=== PATIENT | male | born 1970 | race Two or more races ===

== ENCOUNTER 2018-08-28 03:10 | Inpatient (IN) | payer OTHER ==
[~2018-08-28] VITALS: Ht 165.1 cm; Wt 71.7 kg
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
--- NOTE | 2018-08-28 03:20 | NUR ---
[employer] AT BEDSIDE TALKING TO PT.
[2018-08-28] MEDS ORDERED: ONDANSETRON HCL/PF 4 MG/2 ML VIAL ONE (03:27)
[2018-08-28] MEDS ORDERED: ONDANSETRON HCL/PF 4 MG/2 ML VIAL IVP ONE (03:30)
[2018-08-28] MEDS ORDERED: IV NS 0.9% 1,000 ML BAG IV ONE ×2 (03:30→14:30)
--- NOTE | 2018-08-28 03:45 | NUR ---
IV LINE OBTAINED ON L HAND 20G. MEDICAL TECHNOLOGIST BLOOD BANK AT BEDSIDE FOR BLOOD DRAW
--- NOTE | 2018-08-28 03:48 | NUR ---
AT BEDSIDE FOR EVAL
[2018-08-28 03:53] LABS: BASOPHILS # (AUTO) 0.1 /CMM (0.0-0.2); BASOPHILS % (AUTO) 0.3 % (0.0-2.0); EOSINOPHILS % (AUTO) 0.8 % (0.0-6.0); HEMATOCRIT 35 % (39-51); HEMOGLOBIN 11.6 g/dL (13.5-17.5); LYMPHOCYTES # (AUTO) 2.4 /CMM (0.8-4.8); LYMPHOCYTES % (AUTO) 11.1 % (20.0-44.0); MEAN CORPUSCULAR HGB CONC 34 g/dl (31.0-36.0); MEAN CORPUSCULAR VOLUME 85 fL (80-96); MONOCYTES # (AUTO) 1.3 /CMM (0.1-1.30); MONOCYTES % (AUTO) 5.9 % (2.0-12.0); NEUTROPHILS # (AUTO) 17.9 /CMM (1.8-8.9); NEUTROPHILS % (AUTO) 81.9 % (43.0-81.0); PLATELET COUNT (AUTO) 443 /CMM (150-450); RED BLOOD CELL COUNT(AUTO) 4.08 MIL/uL (4.5-6.0); WHITE BLOOD COUNT (AUTO) 21.9 K/uL (4.3-11.0)
--- NOTE | 2018-08-28 03:53 | NUR ---
XRAY AT BEDSIDE
[2018-08-28 04:00] LABS: ALCOHOL, BLOOD < 3 mg/dL (0-0); CALCIUM, SERUM 8.3 mg/dL (8.5-10.1); CARBON DIOXIDE 25 mmol/L (21-32); CHLORIDE 99 mmol/L (98-107); CREATININE 0.8 mg/dL (0.6-1.3); GLUCOSE 125 mg/dL (74-106); POTASSIUM 3.3 mmol/L (3.5-5.1); SODIUM SERUM 134 mmol/L (136-145); UREA NITROGEN, BLOOD 11 mg/dL (7-18)
--- NOTE | 2018-08-28 04:01 | NUR ---
PT NOTED SATTING AT 86% ON RA WHILE SLEEPING. PLACED ON 02 @ 2LPM VIA NV BUT PT KEEPS REMOVING AND REFUSED TO PUT IT ON. O2 SAT GOES UP TO 97 WHEN HE IS AWAKE. MADE AWARE.
--- NOTE | 2018-08-28 04:02 | NUR ---
RECEIVED ORDER FROM
[2018-08-28] MEDS ORDERED: NALOXONE PREFILLED SYRINGE 2 MG/2 ML SYRINGE ONE (04:04)
--- NOTE | 2018-08-28 04:21 | NUR ---
PT AMBULATED TO BATHROOM WITH ANY ASSITANCE.
[2018-08-28] MEDS ORDERED: NALOXONE HCL 0.4 MG/ML AMPUL IV ONE (04:30)
[2018-08-28 05:03] LABS: APPEARANCE,URINE CLEAR (CLEAR); BILIRUBIN,URINE NEGATIVE (NEGATIVE); BLOOD, URINE NEGATIVE Ery/uL (NEGATIVE); COLOR,URINE YELLOW (YELLOW); KETONES,URINE TRACE (NEGATIVE); LEUKOCYTE ESTERASE ,URINE NEGATIVE (NEGATIVE); NITRITE, URINE NEGATIVE (NEGATIVE); PROTEIN,URINE 1+ mg/dl (NEGATIVE); UGLUCOSE NEGATIVE (NEGATIVE); UROBILINOGEN,URINE 0.2 EU/dL (0.2)
[2018-08-28 05:10] LABS: BACTERIA,URINE Few /HPF (None Seen); MUCUS,URINE Few /LPF (None Seen); SQUAMOUS EPITHELIAL CELL,UR Rare /HPF (None Seen); WBC,URINE 0-2 /HPF (0-3)
--- NOTE | 2018-08-28 06:20 | NUR ---
PT IN BED SLEEPING. NAD, BREATHING EVEN AND UNLABORED.
--- NOTE | 2018-08-28 07:37 | NUR ---
REPORT GIVEN TO ESTEFANY WHITE FOR PAMELA
--- NOTE | 2018-08-28 07:38 | NUR ---
REPORT RECEIVED FROM TREVIN ALLISON FOR PAMELA
--- NOTE | 2018-08-28 09:07 | NUR ---
PT IN BED SLEEPING. NAD, BREATHING EVEN AND UNLABORED. HOOKED TO MONITOR, KEPT SAFE, WARM AND COMFORTABLE.
--- NOTE | 2018-08-28 10:38 | NUR ---
PT IN BED SLEEPING. HOOKED TO MONITOR, NAD, BREATHING EVEN AND UNLABORED. KEPT SAFE, WARM AND COMFORTABLE.
--- NOTE | 2018-08-28 13:23 | NUR ---
PT ASLEEP IN BED, EASILY AROUSED BY VOICE. HOOKED TO MONITOR. KEPT SAFE, WARM AND COMFORTABLE.
[2018-08-28] MEDS ORDERED: ONDANSETRON 4 MG TAB.RAPDIS ONE (13:28)
[2018-08-28] MEDS ORDERED: ONDANSETRON 4 MG TAB.RAPDIS SL ONE (13:30)
[2018-08-28] MEDS ORDERED: NAPR-1009 PO (14:05)
[2018-08-28] MEDS ORDERED: METH500T PO (14:05)
[2018-08-28] MEDS ORDERED: METH750T3 PO (14:06)
[2018-08-28] MEDS ORDERED: VANCOMYCIN 1 GM in IV D5W 250 ML IV ONE (14:30)
[2018-08-28] MEDS ORDERED: PIPERACILLIN /TAZOBACTAM 3.375 G in IV D5W 50 ML IV ONE (14:30)
--- NOTE | 2018-08-28 14:30 | NUR ---
LH PERIPHERAL IV LINE INFILTRATED, REMOVED IV. NO BLEEDING NOTED. STARTED NEW IVP AT RH 20G.
--- NOTE | 2018-08-28 14:45 | NUR ---
NÉ[employer] WAS CALLED. GLOBAL HUMAN RESOURCES DIRECTOR WAS PAGED.
--- NOTE | 2018-08-28 15:11 | NUR ---
[facility]ED [facility] FOR [facility] FOR RETAIL COVERAGE MERCHANDISER LEAD
--- NOTE | 2018-08-28 15:18 | NUR ---
CALLED [facility]SE [facility] FOR MS BED
[2018-08-28] MEDS ORDERED: IV NS 0.9% 1,000 ML IV PRN (15:28)
[2018-08-28] MEDS ORDERED: NAPROXEN 500 MG TABLET PO PRN (15:30)
[2018-08-28] MEDS ORDERED: ONDANSETRON HCL/PF 4 MG/2 ML VIAL IVP PRN (15:30)
[2018-08-28] MEDS ORDERED: LORAZEPAM INJ 2 MG/ML VIAL IV PRN (15:30)
[2018-08-28] MEDS ORDERED: MAG HYDROX/AL HYDROX/SIMETH 30 ML UDC PO PRN (15:30)
[2018-08-28] MEDS ORDERED: Z GUARD REMEDY 2 OZ OINT TP PRN (15:30)
[2018-08-28] MEDS ORDERED: MAGNESIUM HYDROXIDE 30 ML UDC PO PRN (15:30)
[2018-08-28] MEDS ORDERED: POTASSIUM CHLORIDE 20 MEQ TAB.PRT.SR PO ONE (15:30)
[2018-08-28] MEDS ORDERED: HYDROCODONE/APAP 10/325MG 1 EA TABLET PO PRN (15:30)
[2018-08-28] MEDS ORDERED: HYDROCODONE/APAP 5/325MG 1 EACH TABLET PO PRN (15:30)
[2018-08-28] MEDS ORDERED: ZOLPIDEM TARTRATE 5 MG TABLET PO PRN (15:30)
[2018-08-28] MEDS ORDERED: ACETAMINOPHEN 325 MG TABLET PO PRN (15:30)
[2018-08-28] MEDS ORDERED: HYDROMORPHONE INJ 2 MG/ML DISP.SYRIN IV PRN (15:30)
[2018-08-28] MEDS ORDERED: METHOCARBAMOL (750MG) 750 MG TABLET PO PRN (15:30)
[2018-08-28 15:37] VITALS: BP 104/70
--- NOTE | 2018-08-28 15:51 | NUR ---
207-2 MS BED GIVEN
--- NOTE | 2018-08-28 16:00 | NUR ---
REPORT GIVEN TO CHRISTOPHER ALLISON OF MED-S[facility] UNIT
[2018-08-28] MEDS ORDERED: FEE PK DOSING 1 MIN EA MC ONE (16:10)
--- NOTE | 2018-08-28 16:10 | NUR ---
MS RN NOTES PATIENT ARRIVED AT UNIT BY EL. PATIENT SLEEPING, EASILY AROUSABLE, ALERT AND ORIENTED X 4, VERBALLY RESPONSIVE AND RESPONDS TO VERBAL AND TACTILE STIMULI. NO ACUTE DISTRESS. DENIES ANY PAIN OR DISCOMFORT. PATIENT UNDER MEDICAL SUPERVISION OF DR. FULLER, MADE AWARE OF PATIENT ARRIVAL. PATIENT ORIENTED TO UNIT, STAFF, PLAN OF CARE AND VERBALIZED UNDERSTANDING. WILL CONTINUE TO MONITOR. BED LOCKED AND IN LOW POSITION. BILATERAL UPPER SIDE RAILS UP AND LOCKED. CALL LIGHT WITHIN EASY REACH
[2018-08-28] MEDS ORDERED: ENOXAPARIN SODIUM 40 MG/0.4 ML DISP.SYRIN SQ SCH (16:30)
--- NOTE | 2018-08-28 16:50 | NUR ---
MS RN NOTES DR. FULLER PRESENT AT UNIT. REQUESTING THAT PATIENT TO BE TRANSFERRED TO 3RD FLOOR FOR CLOSER SUPERVISION PATIENT HAS EPISODES OF VOMITING. NURSING INSPECTOR SOLDERING MADE AWARE AND GAVE OK. CHARGE NURSE AT [facility] MADE AWARE.
--- NOTE | 2018-08-28 17:10 | NUR ---
MS RN NOTES PATIENT TO TRANSFER TO [facility]
[2018-08-28] MEDS: ZOSYN IVPB 3.375 G in IV D5W 50ml IV SCH ×2 (17:21→23:24)
--- NOTE | 2018-08-28 17:30 | NUR ---
MS RN NOTES REPORT GIVEN TO DEVANTE RN FOR PAMELA
[2018-08-28] MEDS ORDERED: PIPERACILLIN /TAZOBACTAM 4.5 G in IV D5W 50 ML IV SCH (18:00)
--- NOTE | 2018-08-28 18:17 | NUR ---
MS RN NOTES TRANSFERRED TO [facility] BY HOSPITAL BED. NO ACUTE DISTRESS. PATIENT SLEEPING, EASILY AROUSABLE THROUGH VERBAL AND TACTILE STIMULI. RECEIVING RN AT BEDSIDE
--- NOTE | 2018-08-28 18:30 | NUR ---
MS/RN NOTE THE PATIENT6 RECEIVED AT 1830 FROM ESTEFANY BRO MS2. PATIENT ALERT AND ORIENTED X4. IN ROOM AIR AND DENIES SOB. RESPIRATION REGULAR AND UNLABORED. DENIES PAIN. RIGHT HAND G 20 PATENT AND SALINE LOCKED. BED LOW AND LOCKED. SIDE RAILS UP X3. CALL LIGHT WITHIN REACH. WILL ENDORSE TO PATROL DRIVER.
[2018-08-28] MEDS: ALBUTEROL FS 2.5 MG/3 ML VIAL.NEB NEB SCH ×2 (19:30→23:21)
--- NOTE | 2018-08-28 19:58 | NUR ---
PT IN BED COVERED WITH BLANKET , REFUSED BREATHING TREATMENT AND VITALS. IV FLUIDS INFUSING TO RIGHT ARM, INTACT AND PATENT.
[2018-08-28] MEDS: VANCOMYCIN 0.75 GM in IV D5W 250 ML IV SCH (23:24)
[2018-08-29] MEDS: ALBUTEROL FS 2.5 MG/3 ML VIAL.NEB NEB SCH ×3 (03:26→10:50)
[2018-08-29] MEDS: ZOSYN IVPB 3.375 G in IV D5W 50ml IV SCH (05:41)
--- NOTE | 2018-08-29 05:52 | NUR ---
pt sleeping most of the night, had consumed around 20 cups of juices overnight, got up to bathroom , pt claims he always have diarrhea, voided. pt this morning refused blood draw, pt stated he wasnt able to get enough sleep, he says people keep coming to his room " i can hear your footsteps " . denies any pain, pt screams "leave me alone and turn off the light" instructed phlebotomy to come next draw , iv infusing to right arm ,intact and patent, continue with iv fluids. bed alarm active at all times.
--- NOTE | 2018-08-29 07:30 | NUR ---
m/s apparel embroidery digitizer: notes received pt in bed asleep, but easily arousable. pt wearing his own clothes and refused to wear gown when offered. i just want to sleep as stated. call light within reach. iv fluids infusing. will continue to monitor.
[2018-08-29] MEDS: VANCOMYCIN 0.75 GM in IV D5W 250 ML IV SCH (07:47)
--- NOTE | 2018-08-29 08:00 | NUR ---
m/s business operations specialist: notes pt refused skin to be assessed. also pt refused vital signs. call light within reach. will continue to monitor.
--- NOTE | 2018-08-29 09:45 | NUR ---
WOUND CARE CONSULT: PT REFUSED SKIN ASSESSMENT. PER ADMISSION PHOTO, PT HAS MULTIPLE SKIN ISSUES INCLUDING DRY SCABS, SCARS AND PARTIAL THICKNESS ULCER TO SACRUM, PRESENT ON ADMISSION. RECOMMENDATIONS MADE FOR WOUND CARE OF SACRUM. DEFER TO MD FOR OTHER SKIN ISSUES. DISCUSSED RECOMMENDATIONS WITH NURSING STAFF. PT IS AMBULATORY AND CONTINENT. WILL SEE PRN.
[2018-08-29] MEDS ORDERED: HYDROGEL DRESSING 90 GM TUBE TP PRN (10:00)
[2018-08-29] MEDS ORDERED: HYDROGEL DRESSING 90 GM TUBE TP SCH (10:00)
--- NOTE | 2018-08-29 10:00 | NUR ---
m/s mechanical test technician: notes pt remains non-compliant with tx and plan. pt refused wound tx to his buttock.
--- NOTE | 2018-08-29 10:15 | NUR ---
Social service consult requested by Dr. Duke for heroin drug use. Pt. is a 47 year old male who was admitted to [facility] for cellulitis. CAIO met with pt. bedside. Pt. is alert and oriented x 4. Pt. is refusing to cooperate with CAIO and requested for directions to [facility] from [place]. He stated, his mom is going to come pick him up. CAIO tried again to engage pt. to cooperate, however pt. declined. CAIO gave pt. directions to [facility] per request. CAIO updated Dr. Duke, Med Surg 3 CRWoody Chaves and nurse case management Odette Collins regarding pt's discharge plan.
[2018-08-29] MEDS ORDERED: SULF1TAB48 PO (10:51)
--- NOTE | 2018-08-29 11:00 | NUR ---
m/s film coater: notes pt pulled his iv. pressure dressing applied to site due to bleeding. seen by dr. easley with order to d'c home today. pt wants to shower. assisted to shower room and instructed to call for assistance.
[2018-08-29] MEDS ORDERED: HYDROMORPHONE HCL 2 MG TABLET PO PRN (11:30)
--- NOTE | 2018-08-29 11:45 | NUR ---
m/s store gift wrap associate: notes pt got off the shower at this time and called his mother to pick him up. pt refusing to give his mother's phone number. pt refused resources. instructed to call for assistance. will monitor.
--- NOTE | 2018-08-29 12:30 | NUR ---
m/s hansard reporter: notes pt still refuses to cooperate with staff re: blood draw, wound care, and tx plan. pt for d'c planning to home, awaiting for his mother. pt still refuses for us to call his mother to verify if she is coming to pick him up. pt gets easily irritated and agitated on this issue. pt needs attended. instructed to call for assistance. will continue to monitor.
[2018-08-29] MEDS ORDERED: CEFTRIAXONE 1 G in IV D5W 50 ML IV SCH (13:00)
--- NOTE | 2018-08-29 13:23 | NUR ---
m/s web retailer: notes pt still refusing lab draw and iv insertion. pt for d'c home today, awaiting for his mom to pick him up. will continue to monitor.
--- NOTE | 2018-08-29 14:30 | NUR ---
m/s nurse researcher: notes pt easily irritated when someone comes in to his room. still awaiting for his mother to come to pick him up. pt still refuses staff to call his mom to verify pickler helper time. pt has called his mom this morning to pick him up as stated. will continue to monitor.
--- NOTE | 2018-08-29 15:25 | NUR ---
m/s territory supervisor: notes pt refusing transportation. called marriage and family social worker for discharge. nayan ([email or web address]) at bedside and still refusing transportation when offered. pt refused all d'c papers and prescription; refuses to sign all paperworks. pt also refuses to bring some of his clothes and wants thrown away.
--- NOTE | 2018-08-29 15:30 | NUR ---
m/s digital computer operator: notes offered once more his prescription and d'c papers, but pt still refuses. pt left hospital via ambulatory with valuables in stable condition.
== END 2018-08-29 15:25 | disposition home or self-care (01) | DRG 383 ==
LOC: ER 03:13 → EDBD 03:26 → ER 03:26 → MEDSG2 15:53 → MED 18:14
PROVIDERS: ADMIT Internal Medicine; ATTEND Internal Medicine
DX: L03.113 Cellulitis of right upper limb (principal); G92 Toxic encephalopathy; D72.829 Elevated white blood cell count, unspecified; F11.129 Opioid abuse with intoxication, unspecified; J42 Unspecified chronic bronchitis; F17.210 Nicotine dependence, cigarettes, uncomplicated; L02.413 Cutaneous abscess of right upper limb
CPT/HCPCS: 36415; 71045-TC; 80048-TC; 80305; 81000-TC; 84484-TC; 85025-TC; 87040-TC; 87081-TC; A6248; G0378; G0480; J0696; J1650; J2310; J2405; J2543; J3370; J7030; J7040; J7060; Q0162

== ENCOUNTER 2018-08-29 15:34 | Emergency (ER) | payer OTHER ==
[~2018-08-29] VITALS: Ht 165.1 cm; Wt 76.2 kg
[~2018-08-29 15:34] MED LIST: METH750T3 PO; NAPR-1009 PO; SULF1TAB48 PO
--- NOTE | 2018-08-29 15:40 | NUR ---
CAME IN FOR DIZZINESS, -VOMITING, -KO, TO ER BED 8, HOOKED TO MONITOR, CHANGED TO GOWN, PROVIDED W WARM BLANKET, AWAITING MD LUCIA.
--- NOTE | 2018-08-29 16:00 | NUR ---
DR HARRELL AT BEDSIDE
[2018-08-29 16:24] LABS: BASOPHILS # (AUTO) 0.1 /CMM (0.0-0.2); BASOPHILS % (AUTO) 0.6 % (0.0-2.0); EOSINOPHILS % (AUTO) 0.3 % (0.0-6.0); HEMATOCRIT 36 % (39-51); HEMOGLOBIN 11.7 g/dL (13.5-17.5); LYMPHOCYTES # (AUTO) 2.7 /CMM (0.8-4.8); LYMPHOCYTES % (AUTO) 16.4 % (20.0-44.0); MEAN CORPUSCULAR HGB CONC 33 g/dl (31.0-36.0); MEAN CORPUSCULAR VOLUME 85 fL (80-96); MONOCYTES # (AUTO) 0.9 /CMM (0.1-1.30); MONOCYTES % (AUTO) 5.6 % (2.0-12.0); NEUTROPHILS # (AUTO) 12.6 /CMM (1.8-8.9); NEUTROPHILS % (AUTO) 77.1 % (43.0-81.0); PLATELET COUNT (AUTO) 485 /CMM (150-450); RED BLOOD CELL COUNT(AUTO) 4.21 MIL/uL (4.5-6.0); WHITE BLOOD COUNT (AUTO) 16.4 K/uL (4.3-11.0)
[2018-08-29] MEDS ORDERED: IV NS 0.9% 1,000 ML BAG IV ONE (16:30)
[2018-08-29 16:32] LABS: CREATININE 0.8 mg/dL (0.6-1.3); POTASSIUM 3.6 mmol/L (3.5-5.1)
--- NOTE | 2018-08-29 17:59 | NUR ---
PT AMBULATED OUT WITH A STEADY GAIT. PT REFUSED ANY D/C PAPERWORK/ACI. PT ATE HIS MEAL PRIOR TO LEAVING. IS AWARE.
--- NOTE | 2018-08-29 18:14 | NUR ---
Andrey carlson in [facility] - 08/29/18 at 1817 by RHONDA Patient discharged to home in stable condition. Written and verbal after care instructions given. Patient verbalizes understanding of instruction.
[2018-08-29 18:19] VITALS: BP 128/52
== END 2018-08-29 18:00 | disposition home or self-care (01) ==
LOC: ER 15:38
DX: S62.326A Displaced fracture of shaft of fifth metacarpal bone, right hand, initial encounter for closed fracture (principal); R42 Dizziness and giddiness; R55 Syncope and collapse; F19.10 Other psychoactive substance abuse, uncomplicated; X58.XXXA Exposure to other specified factors, initial encounter; Y93.89 Activity, other specified; Y92.89 Other specified places as the place of occurrence of the external cause; Y99.8 Other external cause status
CPT/HCPCS: 29125; 36415; 73130; 80048; 85025; 93005; 99284; J7030

== ENCOUNTER 2018-09-06 13:33 | Emergency (ER) | payer OTHER ==
[~2018-09-06] VITALS: Ht 167.6 cm; Wt 65.8 kg
[2018-09-06] MEDS ORDERED: hydrOXYzine HCL INJ 25 MG/ML VIAL IM PRN (14:30)
[2018-09-06] MEDS ORDERED: ONDANSETRON 4 MG TAB.RAPDIS SL ONE (14:30)
[2018-09-06] MEDS ORDERED: CLONIDINE HCL 0.1 MG TABLET PO ONE (14:30)
[2018-09-06] MEDS ORDERED: ONDANSETRON 4 MG TAB.RAPDIS ONE (14:37)
[2018-09-06] MEDS ORDERED: CLONIDINE HCL 0.1 MG TABLET ONE (14:37)
[2018-09-06 14:42] VITALS: BP 113/67
[2018-09-06] MEDS ORDERED: hydrOXYzine 10 MG TABLET ONE (14:46)
[2018-09-06] MEDS ORDERED: hydrOXYzine 10 MG TABLET PO ONE (15:00)
== END 2018-09-06 16:45 | disposition home or self-care (01) ==
LOC: ER 13:33
DX: F11.23 Opioid dependence with withdrawal (principal); G89.29 Other chronic pain; Z98.890 Other specified postprocedural states; Z79.899 Other long term (current) drug therapy
CPT/HCPCS: 99284; Q0162; Q0177